=== PATIENT | male | born 1980 | race African-American/Black ===

== ENCOUNTER 2016-10-10 14:53 | Emergency (ER) | payer SELFPAY ==
[~2016-10-10] VITALS: Ht 182.9 cm; Wt 100.0 kg
[2016-10-10 14:58] VITALS: BP 138/65
== END 2016-10-10 18:00 | disposition left against medical advice (07) ==
LOC: ER 15:10
DX: F41.9 Anxiety disorder, unspecified (principal); Z53.21 Procedure and treatment not carried out due to patient leaving prior to being seen by health care provider